=== PATIENT | male | born 1955 | race Caucasian/White ===

== ENCOUNTER 2023-10-14 15:02 | Emergency (ER) | payer OTHER ==
[~2023-10-14] VITALS: Ht 170.2 cm; Wt 111.5 kg
[2023-10-14] VITALS (13 sets, daily range): BP systolic 126–163; BP diastolic 56–137
[2023-10-14 15:40] LABS: BASO% 0.5 % (0-3); EOS% 1.1 % (0-8); HEMATOCRIT 36.9 % (39.0-50.0); HEMOGLOBIN 11.7 g/dl (14.0-18.0); IMMATURE GRANULOCYTES 0.2 % (0.0-5.0); LYMPH% 26.6 % (15-41); MEAN CELL VOLUME 88.5 fL CALC (80.0-100.0); MEAN CORPUSCULAR HGB 28.1 pG CALC (26.0-32.0); MEAN CORPUSCULAR HGB CONC 31.7 g/dL CAL (32.0-36.0); NEUT# 6.71 thou/uL (1.82-7.42); NEUT% 61.6 % (42-76); RED BLOOD COUNT 4.17 mill/uL (4.70-6.10); RED CELL DISTRI WIDTH 15.4 % (11.5-15.5)
[2023-10-14 16:45] LABS: ALBUMIN 4.2 g/dL (3.2-5.0); ALKALINE PHOSPHATASE 135 u/l (38-126); ANION GAP 12 (6-22 (CALC)); BILIRUBIN, TOTAL 0.3 mg/dL (0.2-1.3); BUN 17 mg/dL (8-23); BUN/CREATININE RATIO 16 (12-20 (CALC)); CARBON DIOXIDE 25 mmol/l (22-30); CHLORIDE 107 mmol/l (95-108); CREATININE 1.1 mg/dL (0.7-1.3); GFR FOR AFR.AMER. > 60 ML/MIN (>=60 (CALC)); GFR OTHER RACES > 60 ML/MIN (>=60 (CALC)); POTASSIUM 4.3 mmol/l (3.5-5.1); SGOT/AST 72 u/l (19-48); SODIUM 140 mmol/l (137-146); TOTAL PROTEIN 8.1 g/dL (6.3-8.2)
== END 2023-10-14 18:17 | disposition short-term general hospital (02) | DRG 282 ==
LOC: ED 15:02
PROVIDERS: Nurse Practitioner
DX: I21.4 Non-ST elevation (NSTEMI) myocardial infarction (principal); I10 Essential (primary) hypertension; E11.9 Type 2 diabetes mellitus without complications; E03.9 Hypothyroidism, unspecified
CPT/HCPCS: J1644

== ENCOUNTER 2024-09-18 01:04 | Emergency (ER) | payer OTHER ==
[2024-09-18] VITALS (32 sets, daily range): BP systolic 115–154; BP diastolic 42–76
[~2024-09-18] VITALS: Ht 170.2 cm; Wt 91.0 kg
[~2024-09-18 01:04] MED LIST: ADVAIR DISK1; ADVAIR DISK1 IN; ALBUTEROL; ATORVASTATIN CA40 MG PO; BAYER ASPIRIN E81 MG PO; BRILINTA90 MG PO; BUMETANIDE1 MG PO; CARVEDILOL6.25 MG PO; FERROUS SULFAT325 MG PO; HYDRALAZINE HYD25 MG PO; LASIX 20 MG TAB20 MG PO; LEVOTHYROXIN50 MCG PO; LISINOPRIL20 M1 PO; LOSARTAN POTASS50 MG PO; METFORMIN500 M2 PO; NITROSTAT0.4 MG SL; NORVASC PO; OMEPRAZOLE DR40 MG PO; PROTONIX40 M2 PO; SENNA-TABS8.6 MG PO
[2024-09-18 01:33] LABS: BASO% 0.6 % (0-3); EOS% 1.2 % (0-8); IMMATURE GRANULOCYTES 0.6 % (0.0-5.0); LYMPH% 24.9 % (15-41); MEAN CELL VOLUME 89.7 fL CALC (80.0-100.0); MEAN CORPUSCULAR HGB 27.6 pG CALC (26.0-32.0); MEAN CORPUSCULAR HGB CONC 30.7 g/dL CAL (32.0-36.0); MONO% 9.9 % (2-13); NEUT# 6.8 thou/uL (1.82-7.42); NEUT% 62.8 % (42-76); RED BLOOD COUNT 4.28 mill/uL (4.70-6.10); RED CELL DISTRI WIDTH 16.6 % (11.5-15.5)
[2024-09-18 01:36] LABS: HEMATOCRIT 38.4 % (39.0-50.0); HEMOGLOBIN 11.8 g/dl (14.0-18.0)
[2024-09-18 01:46] LABS: ALBUMIN 4.4 g/dL (3.2-5.0); BILIRUBIN, TOTAL 0.5 mg/dL (0.2-1.3); CREATININE 1.1 mg/dL (0.7-1.3); POTASSIUM 3.9 mmol/l (3.5-5.1); TOTAL PROTEIN 7.6 g/dL (6.3-8.2)
[2024-09-18 02:00] LABS: ACT PARTIAL THROMBO TIME 26.9 SECONDS (20.0-32.5)
[2024-09-18 02:05] LABS: D-DIMER 0.44 mg/L (0.19-0.60); PROTHROMBIN TIME 10.8 SECONDS (9.0-12.5)
== END 2024-09-18 09:11 | disposition short-term general hospital (02) | DRG 282 ==
LOC: ED 01:04
PROVIDERS: Family Medicine
DX: I21.4 Non-ST elevation (NSTEMI) myocardial infarction (principal); I10 Essential (primary) hypertension; E11.9 Type 2 diabetes mellitus without complications; Z95.5 Presence of coronary angioplasty implant and graft; Z79.84 Long term (current) use of oral hypoglycemic drugs

== ENCOUNTER 2024-10-06 10:50 | Emergency (ER) | payer OTHER ==
[~2024-10-06] VITALS: Ht 170.2 cm; Wt 102.0 kg
[2024-10-06] VITALS (25 sets, daily range): BP systolic 124–166; BP diastolic 62–84
[2024-10-06] MEDS ORDERED: FUROSEMIDE 40 MG/4 ML SDV IV ONE (11:10)
[2024-10-06] MEDS ORDERED: IPRATROPIUM-Albuterol 0.5MG-2.5MG/3 ML NEB ONE ×2 (11:10)
[2024-10-06] MEDS ORDERED: methylPREDNISolone SODIUM SUCC 125 MG/2 ML SDV IV ONE (11:10)
[2024-10-06 11:30] LABS: BASO% 0.4 % (0-3); EOS% 1.2 % (0-8); HEMATOCRIT 29.3 % (39.0-50.0); HEMOGLOBIN 8.9 g/dl (14.0-18.0); IMMATURE GRANULOCYTES 0.4 % (0.0-5.0); LYMPH% 9.6 % (15-41); MEAN CELL VOLUME 94.5 fL CALC (80.0-100.0); MEAN CORPUSCULAR HGB 28.7 pG CALC (26.0-32.0); MEAN CORPUSCULAR HGB CONC 30.4 g/dL CAL (32.0-36.0); MONO% 10.9 % (2-13); NEUT# 11.18 thou/uL (1.82-7.42); NEUT% 77.5 % (42-76); RED BLOOD COUNT 3.1 mill/uL (4.70-6.10); RED CELL DISTRI WIDTH 17.5 % (11.5-15.5)
[2024-10-06 12:05] LABS: INTERNATIONAL NORMALIZED RATIO 1.1 RATIO (0.7-1.3)
[2024-10-06 12:07] LABS: ALBUMIN 4.2 g/dL (3.2-5.0); BILIRUBIN, TOTAL 0.6 mg/dL (0.2-1.3); CREATININE 1.1 mg/dL (0.7-1.3); POTASSIUM 3.9 mmol/l (3.5-5.1); TOTAL PROTEIN 7.8 g/dL (6.3-8.2)
[2024-10-06 12:08] LABS: PROTHROMBIN TIME 12.2 SECONDS (9.0-12.5)
[2024-10-06 12:12] LABS: D-DIMER 1.2 mg/L (0.19-0.60)
== END 2024-10-06 21:12 | disposition short-term general hospital (02) | DRG 315 ==
LOC: ED 10:50
PROVIDERS: Emergency Medicine
DX: I31.39 Other pericardial effusion (noninflammatory) (principal); J44.1 Chronic obstructive pulmonary disease with (acute) exacerbation; I11.0 Hypertensive heart disease with heart failure; I50.9 Heart failure, unspecified; R09.02 Hypoxemia; I25.10 Atherosclerotic heart disease of native coronary artery without angina pectoris; I25.5 Ischemic cardiomyopathy; E11.9 Type 2 diabetes mellitus without complications; E66.9 Obesity, unspecified; Z95.1 Presence of aortocoronary bypass graft; Z95.5 Presence of coronary angioplasty implant and graft; Z79.84 Long term (current) use of oral hypoglycemic drugs; Z20.822 Contact with and (suspected) exposure to COVID-19
CPT/HCPCS: J1940; Q9967